=== PATIENT | female | born 1980 | race Caucasian/White ===

== ENCOUNTER 2025-01-14 09:03 | Outpatient (AMB) | payer BC, SELFPAY ==
[2025-01-14 09:27] VITALS: BP 169/100; PULSE 74; RESP 16; TEMP 36.6; O2SAT 98; BMI 34.2
--- NOTE | 2025-01-14 09:27 | GYNCLNT_ITS ---
Vital Signs 01/14/25 09:27 Height 1.52 m Height Method Stated Weight 79.435 kg Weight Measurement Method Standing Scale BMI 34.2 BP 169/100 H Blood Pressure Source Automatic Cuff Blood Pressure Location Left Upper Arm Position Sitting Respiration 16 Pulse 74 Pulse Source Monitor Temp 97.9 F Temp Source Oral Pulse Oximetry (%) 98 Oxygen Delivery Method Room Air Allergies/Home Meds Allergies & Medications Allergies No Known Allergies Allergy (Verified 01/14/25 09:28) Medication Reconciliation No Known Home Medications 01/14/25 [History Confirmed 01/14/25] Intake Visit Data Collection New Patient or Established: New Patient (never been to [facility]) Reason for Visit:: ANNUAL WELLNESS Seen by Clinical Staff ONLY (RN/MA): No Component Engineer Required: No Do You Feel Safe at Home: Yes Authorities Contacted: N/A PCP or OBGYN visit in last 3 months: Yes Hx Now: No Are you currently on any form of Control: Yes Last menstrual period: 01/07/25 Pain Present Currently: No Pain Scale Used: Burton-Cavazos/Numerical Pain scale:: 0 Smoking Status Smoking Status: Never smoker 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 No asthma no hypertension no diabetes. On no medications. Other Relevant History: x 4 in the past Questionnaires Covid-19 Vaccine Questionnaire Has patient been vacinated for Covid-19 Have you been vacinated for Covid-19: Yes PHQ-9 PHQ-2 Over the last 2 weeks, how often have you been bothered by any of the following problems? 1. Little interest or pleasure in doing things: not at all 2. Feeling down, depressed, or hopeless: not at all Total score: 0 PHQ-9 3. Trouble falling or staying asleep, or sleeping too much: Not at all 4. Feeling tired or having little energy: Not at all 5. Poor appetite or overeating: Not at all 6. Feeling bad about yourself - or that you are a failure or have let yourself or your family down: Not at all 7. Trouble concentrating on things, such as reading the newspaper or watching television: Not at all 8. Moving or speaking so slowly that other people could have noticed? - Or the opposite - being so fidgety or restless that you have been moving around a lot more than usual: not at all 9. Thoughts that you would be better off or of hurting yourself in some way: Not at all Total score: 0 Source: Developed by Drs. Russ Gallegos, Ana Maria Moran, Sam Casanova and colleagues, with an educational chetna from [employer]. Depression screen completed yes Social History Living Situation History Marital Status: Lives With: Family Housing: House Housing Other:: Three girls and a boy. Has a PhD in education Tobacco History Smoking Status: Never smoker Alcohol History Alcohol Intake: Never Domestic Abuse History Do You Feel Safe at Home: Yes History of Present Illness HPI Narrative The patient is a 44-year-old -1-0-4 history of vaginal delivery x 4 in the past. Her oldest daughter is 28 and is working on a BS RN. She is a 2-year-old son. That is the patient's first grandchild. Her second daughter is 23 years old going to [employer] and wants to pursue nursing ,her next daughter is 17 years old and is a senior in high school this year and would like to go to [employer] for college and her youngest son is 9 years old. The patient has an Kushal. 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 Today she presents for an annual exam. She used to see me in [place]. She denies hot flashes night sweats abnormal uterine bleeding. She only reports recent weight gain. She did not release her records from [place]. Her owns a [employer] business. Menstrual character: normal Gynecologic pain symptoms: Reports none Menopause concerns/symptoms: Reports none Other pertinent information: Patient cycles are monthly last 5 days last menstrual period 01/07/2025 started her cycles at age 11. Review of Systems Review of Systems Narrative Review of Systems: No hot flashes night sweats dysuria pelvic pain incontinence. No migraines. Cycles are regular monthly. Patient admits she needs to exercise more. She does report incontinence. Her primary checked her thyroid a year ago and it was normal. She also got worked up for an irregular heartbeat and saw head athletic trainer a year ago. Exam Narrative Physical exam: Breast exam normal bilaterally no lymphadenopathy nipple discharge or masses bilaterally. General Limitations: no limitations General Appearance: alert, in no apparent distress, comfortable, cooperative, healthy appearing, well developed and well groomed Neck Neck exam: Present normal inspection, full ROM and trachea midline Chest Chest inspection: Present normal inspection and symmetric chest wall rise Resp Respiratory exam: Present normal lung sounds bilaterally Card Cardiovascular exam: Present regular rate, normal rhythm and normal heart sounds Abdominal Abdominal exam: Present soft and normal bowel sounds External exam: Present normal external exam (No significant cystocele or rectocele present.) Speculum exam: Present normal speculum exam Bimanual exam: Present normal bimanual exam Extremities Extremities exam: Present normal inspection and full ROM Back Back exam: Present normal inspection and full ROM Skin Skin exam: Present warm, dry, intact and normal color Office Procedures OB Clinic LOC & Office Proc's Nursing/Assessment Patient Status: Initial/New Patient OB Clinic Nursing Assessment: Medication Reconciliation, Update PMH in EMR and Vital Signs OB Clinic Coordination of Care: Complex Care and Chronic Disease 1-5, Consent,records obtained, informed consent, Education Simp Pt/Fam, Lab and Imaging orders, Results/Orders obtained and Staff clarify orders Miscellaneous Interventions: Breast Exam and Pelvic/Pap Smear Set up New Patient Charge New Patient Point Assignment: 1154 New Patient Point Charge: CREDIT OFFICER Level 4 ([id number]) In Clinic Procedures Pap Smear: Yes Assessment & Plan Diagnosis / Problem List (1) Encounter for Routine Gynecological Examination: Qualifiers: Gynecological examination findings: abnormal findings ABSENT Qualified Code(s): Z01.419 - Encounter for gynecological examination (general) (routine) without abnormal findings Assessment and Plan: Pap with high-risk HPV was performed. Breast exam done encouraged. Mammogram was ordered with ultrasound as patient has dense breasts and a history of callbacks for dense breasts.. Her blood pressure was elevated today. She needs to follow-up with her primary care. She denies any symptoms. She has had a cardiology workup within a year for an abnormal heartbeat. CORPORATION SECRETARY: Papsmear Pap Smear Procedure Chaparone in room during procedure?: No Pre-op diagnosis general: Annual wellness exam Post-op diagnosis procedure note: Same Procedure Notes:: Pap with high-risk HPV performed Papsmear completed: yes
== END 2025-01-14 09:58 | disposition home or self-care (01) ==
PROVIDERS: PCP Family Medicine; Referring Provider Family Medicine; Supervising Provider Obstetrics & Gynecology; Visit Provider Obstetrics & Gynecology
DX: Z01.411 Encounter for gynecological examination (general) (routine) with abnormal findings (principal); Z11.51 Encounter for screening for human papillomavirus (HPV); R92.30 Dense breasts, unspecified
CPT/HCPCS: 99204; Q0091; G0463